=== PATIENT | male | born 1975 | race Hispanic/Latino ===

== ENCOUNTER 2016-11-25 09:55 | Emergency (ER) | payer SELFPAY ==
[2016-11-25 10:08] VITALS: BMI 30.2
[2016-11-25 10:14] VITALS: BP 124/78; TEMP 97.8; O2SAT 98
--- NOTE | 2016-11-25 10:38 | C.PDOC ---
History Of Present Illness 40 year old male presents to the ED with complaints of dental pain and swelling. Patient states he got [place] at a [place] in [place] in 2011 and fractured the teeth on the right side of his mouth. Patient went to a dentist for treatment but it did not help, returned to his dentist 3 weeks ago and was told to go to an oral surgeon. Patient states he has not been able to follow up with an oral surgeon because he does not have insurance coverage. This morning, patient took 200mg Ibuprofen without significant relief, and presents to the ED for further evaluation. Patient also complains of left elbow pain and swelling. He states that he has been leaning on the elbow more than usual. Patient also complains of lower back pain associated with numbness and a burning sensation that extends to his right foot and toes. Patient denies any other symptoms, recent travel, known sick contact, fever, chills, recent injuries/falls. Time Seen by Provider: 11/25/16 10:00 Chief Complaint (Nursing): Dental Pain History Per: Patient History/Exam Limitations: no limitations Onset/Duration Of Symptoms: Days Current Symptoms Are (Timing): Still Present Quality: Positive for: Burning, "Pain" Recent travel outside of the [place]: No Additional History Per: Patient Past Medical History Reviewed: Historical Data, Nursing Documentation, Vital Signs Vital Signs: Last Vital Signs Temp 97.8 F 11/25/16 10:08 Pulse 78 11/25/16 10:52 Resp 17 11/25/16 10:52 BP 124/78 11/25/16 10:08 Pulse Ox 98 11/25/16 11:07 - Medical History PMH: No Chronic Diseases Surgical History: Back Surgery (Laminectomy) Other Surgeries: TMJ surgery Family History: States: Unknown Family Hx - Social History Hx Alcohol Use: Yes Hx Substance Use: Yes - Immunization History Hx Tetanus Toxoid Vaccination: No Hx Influenza Vaccination: Yes Hx Pneumococcal Vaccination: No Review Of Systems Constitutional: Positive for: Chills. Negative for: Fever, Weakness ENT: Positive for: Mouth Pain. Negative for: Throat Pain, Throat Swelling Cardiovascular: Negative for: Chest Pain Respiratory: Negative for: Cough Gastrointestinal: Negative for: Nausea Musculoskeletal: Positive for: Arm Pain (left elbow), Back Pain Neurological: Positive for: Numbness. Negative for: Weakness Physical Exam - Physical Exam Appears: Non-toxic, No Acute Distress Skin: Normal Color, Warm, Dry Head: Atraumatic, Normacephalic Eye(s): bilateral: Normal Inspection Oral Mucosa: Moist Teeth: No Normal Dentition (Right lower molar), Tender To Palpation (right lower molar ) Gingiva: No Erythema, Swelling, No Abscess Throat: Normal, No Erythema, No Exudate Neck: Normal, Supple Chest: Symmetrical, No Deformity Cardiovascular: Rhythm Regular Respiratory: Normal Breath Sounds Back: Paraspinal Tenderness (Right lumbar), No Other (Midline tenderness) Extremity: Normal ROM, No Tenderness (left elbow ), No Calf Tenderness, Capillary Refill (less than 2 seconds ), No Deformity Neurological/Psych: Oriented x3, Normal Speech, Normal Cognition Gait: Steady ED Course And Treatment O2 Sat by Pulse Oximetry: 98 (Room air) Pulse Ox Interpretation: Normal Medical Decision Making Medical Decision Making: Bloodwork ordered. Patient's [facility] history reviewed. Patient has a prior narcotic prescription that he received 11 months ago. Patient was counseled about the use of narcotics. Patient was told to follow up with oral surgeon for his tooth pain,and take Motrin PO to help manage pain. Disposition - Disposition Referrals: Clinic,Med Surg [Primary Care Provider] - Disposition: HOME/ ROUTINE Disposition Time: 10:35 Condition: STABLE Prescriptions: Amoxicillin/Clavulanate [Augmentin 875 MG-125 MG] 1 tab PO BID #20 tab Ibuprofen [Motrin] 600 mg PO Q6 #25 tab oxyCODONE/Acetaminophen [Percocet 5/325 mg Tab] 1 tab PO Q6 #10 tab Instructions: Elbow Bursitis (ED), Lumbar Radiculopathy (ED), Toothache (ED) Forms: [facility] (Faroese), Work Excuse - Clinical Impression Clinical Impression: Pain, dental, Olecranon bursitis, Lumbar radiculopathy - Scribe Statement The provider has reviewed the documentation as recorded by the Scribrolando Mead All medical record entries made by the Scribe were at my direction and personally dictated by me. I have reviewed the chart and agree that the record accurately reflects my personal performance of the history, physical exam, medical decision making, and the department course for this patient. I have also personally directed, reviewed, and agree with the discharge instructions and disposition.
[2016-11-25 10:59] VITALS: PULSE 78; RESP 17
== END 2016-11-25 10:59 | disposition home or self-care (01) ==
LOC: SUPCPDRO 09:55 → C.ER 09:55
DX: K08.89 Other specified disorders of teeth and supporting structures (principal); M70.22 Olecranon bursitis, left elbow; M54.16 Radiculopathy, lumbar region

== ENCOUNTER 2017-03-02 00:20 | Emergency (ER) | payer SELFPAY ==
[2017-03-02 00:21] VITALS: BMI 30.2
--- NOTE | 2017-03-02 01:03 | C.PDOC ---
History Of Present Illness patient notices a red line from mid right forearm "moving " upwards toweard the antecubital fosa. No trauma. Some fever and chill., Denies ivda Time Seen by Provider: 03/02/17 01:02 Chief Complaint (Nursing): Abnormal Skin Integrity History Per: Patient History/Exam Limitations: no limitations Onset/Duration Of Symptoms: Days Current Symptoms Are (Timing): Still Present Location Of Injury: Right: Forearm (streak of redness) Quality Of Symptoms: Swollen Severity: Mild Pain Scale Rating Of: 3 Recent travel outside of the [place]: No Additional History Per: Patient Past Medical History Reviewed: Historical Data, Nursing Documentation, Vital Signs Vital Signs: Last Vital Signs Temp 98.3 F 03/02/17 00:39 Pulse 79 03/02/17 00:39 Resp 16 03/02/17 00:39 BP 117/79 03/02/17 00:39 Pulse Ox 98 03/02/17 01:14 Surgical History: Back Surgery (Laminectomy) Family History: States: No Known Family Hx - Social History Hx Alcohol Use: Yes Hx Substance Use: Yes - Immunization History Hx Tetanus Toxoid Vaccination: No Hx Influenza Vaccination: No Hx Pneumococcal Vaccination: No Physical Exam - Physical Exam Appears: Non-toxic, No Acute Distress Skin: Warm, Dry, Rash (right frearm redness, streaking towards antecubital fossa ) Oral Mucosa: Moist Extremity: No Tenderness, No Deformity, No Swelling Extremity: Bilateral: Atraumatic Pulses: Right Brachial: Normal, Right Radial: Normal Neurological/Psych: Oriented x3, Normal Speech, Normal Cognition Gait: Steady ED Course And Treatment - Laboratory Results Result Diagrams: 03/02/17 01:47 03/02/17 01:47 O2 Sat by Pulse Oximetry: 98 Pulse Ox Interpretation: Normal Reevaluation Time: 03:27 Reassessment Condition: Improved Disposition Counseled Patient/Family Regarding: Studies Performed, Diagnosis, Need For Followup - Disposition Referrals: [facility] [Outside] [facility] [Outside] Disposition: HOME/ ROUTINE Disposition Time: 01:02 Condition: FAIR Additional Instructions: Please return if symptoms recur Prescriptions: Cephalexin [Keflex] 500 mg PO QID #28 capsule Instructions: Cellulitis (DC) Forms: [employer] (Italian) - Clinical Impression Clinical Impression: Cellulitis, Phlebitis
[2017-03-02 01:50] LABS: BASO # 0.1 K/uL (0.0-0.2); BASO % 0.7 % (0.0-2.0); EOS # 0.3 K/uL (0.0-0.7); EOS % 3.8 % (0.0-4.0); HEMOGLOBIN 15.6 g/dL (12.0-18.0); LYMPH # 3.5 K/uL (1.0-4.3); LYMPH % 43.8 % (20.0-40.0); MEAN CELL VOLUME 93.2 fL (80.0-94.0); MEAN CORPUSCULAR HGB CONC 34.3 g/dL (33.0-37.0); MEAN PLATELET VOLUME 7.4 fL (7.2-11.7); MONO # 0.9 K/uL (0.0-0.8); MONO % 11.2 % (0.0-10.0); NEUT # 3.2 K/uL (1.8-7.0); NEUT % 40.5 % (50.0-75.0); NRBC % 0.1 % (0.0-2.0); RBC 4.88 Mil/uL (4.40-5.90); RED CELL DISTRIBUTION WIDTH 13.1 % (11.5-14.5); WHITE BLOOD COUNT 7.9 K/uL (4.8-10.8)
[2017-03-02 01:53] LABS: VENOUS BLOOD GAS BASE EXCESS 1.5 mmol/L (0.0-2.0); VENOUS BLOOD GAS PCO2 46 mmHg (40-60); VENOUS BLOOD GAS PO2 39 mm/Hg (30-55); VENOUS BLOOD PH 7.38 (7.32-7.43)
[2017-03-02 02:12] LABS: BLOOD UREA NITROGEN 16 mg/dL (9-20); CALCIUM 8.8 mg/dl (8.6-10.4); GFR AFRICAN-AMERICAN > 60; GFR NON-AFRICAN AMERICAN > 60
[2017-03-02] MEDS ORDERED: ceFAZolin 1 gm FROZEN Premix 2 GM/100 ML ML IVPB ONE (02:26)
[2017-03-02] MEDS ORDERED: ceFAZolin IV 2 gm in Dextrose 2 GM/50 ML BAG IVPB SCH (02:30)
[2017-03-02 03:42] VITALS: BP 110/72; PULSE 63; RESP 20; TEMP 97.8; O2SAT 96
== END 2017-03-02 03:42 | disposition home or self-care (01) ==
LOC: C.ER 00:20
DX: L03.113 Cellulitis of right upper limb (principal); I80.9 Phlebitis and thrombophlebitis of unspecified site
CPT/HCPCS: 80048; 82803; 85025; 85610; 85730; 87040; 96365; 99284; J0690

== ENCOUNTER 2017-04-17 17:30 | Emergency (ER) | payer MEDICAID ==
[2017-04-17 17:37] VITALS: BMI 29.6
--- NOTE | 2017-04-17 18:28 | C.PDOC ---
History Of Present Illness 41-year-old male, presents to the emergency department with complaints of injury to Left elbow and right hand sustained three weeks status post mechanical fall. Patient reports he is taking OTC medications and icing area with minimal relief. Over the past two days, patient reports a bump to the right hand with associated redness. He also complains of pain to right shoulder and arm, denies injury but admits to moving furniture at work. Denies any fevers , or new injuries. Time Seen by Provider: 04/17/17 18:06 Chief Complaint (Nursing): Upper Extremity Problem/Injury History Per: Patient History/Exam Limitations: no limitations Onset/Duration Of Symptoms: Days Current Symptoms Are (Timing): Still Present Past Medical History Reviewed: Historical Data, Nursing Documentation, Vital Signs Vital Signs: Last Vital Signs Temp 98.2 F 04/17/17 19:19 Pulse 74 04/17/17 19:19 Resp 20 04/17/17 19:19 BP 109/69 04/17/17 19:19 Pulse Ox 98 04/17/17 19:19 Surgical History: Back Surgery (Laminectomy) Family History: States: No Known Family Hx - Social History Hx Alcohol Use: Yes Hx Substance Use: Yes - Immunization History Hx Tetanus Toxoid Vaccination: No Hx Influenza Vaccination: No Hx Pneumococcal Vaccination: No Review Of Systems Constitutional: Negative for: Fever Gastrointestinal: Negative for: Vomiting Musculoskeletal: Positive for: Arm Pain (L), Hand Pain (R) Neurological: Negative for: Weakness, Numbness, Headache, Dizziness Physical Exam - Physical Exam Appears: Well, Non-toxic, No Acute Distress Skin: Normal Color, Warm, Dry, No Rash Extremity: Normal ROM, Tenderness, Capillary Refill (<2 seconds), No Deformity, No Swelling, Other (FROM L elbow. Mild tenderness laterally. R Hand: Tenderness , erythema and swelling to 5th metacarpal.) Pulses: Left Radial: Normal, Right Radial: Normal Neurological/Psych: Oriented x3, Normal Speech ED Course And Treatment O2 Sat by Pulse Oximetry: 100 (RA) Pulse Ox Interpretation: Normal Medical Decision Making Medical Decision Making: Plan: * XR L elbow * XR R Hand Xrays viewed by me showing no acute fractures. Right hand shows deformity to 5th metacarpal, appears to be old fx and healed. Patient made aware of xray results. Advise analgesics and can follow up with ortho Disposition Counseled Patient/Family Regarding: Diagnosis, Need For Followup, Rx Given - Disposition Referrals: Osmin Servin III, MD [Staff Provider] - Frank Deng MD [Staff Provider] - Disposition: HOME/ ROUTINE Disposition Time: 19:04 Condition: GOOD Additional Instructions: You have an old healed fracture to right hand Take analgesics as needed Follow up with orthopedic for further evaluation. Prescriptions: Ibuprofen [Motrin] 600 mg PO Q8 #30 tab Instructions: Fractures Forms: [employer] (North Korean) - POA Present On Arrival: None - Clinical Impression Clinical Impression: Closed fracture of hand with routine healing, Elbow contusion, Muscle strain - Scribe Statement The provider has reviewed the documentation as recorded by the Scribe (Asmita Heck) All medical record entries made by the Scribe were at my direction and personally dictated by me. I have reviewed the chart and agree that the record accurately reflects my personal performance of the history, physical exam, medical decision making, and the department course for this patient. I have also personally directed, reviewed, and agree with the discharge instructions and disposition.
[2017-04-17 19:20] VITALS: BP 109/69; PULSE 74; RESP 20; TEMP 98.2
[2017-04-17 20:21] VITALS: O2SAT 100
--- NOTE | 2017-04-18 08:23 | RAD ---
PROCEDURE: Radiographs of the left elbow. HISTORY: pain s.p injury COMPARISON: No prior. FINDINGS: BONES: No acute fracture. JOINTS: Unremarkable. SOFT TISSUES: Normal. JOINT EFFUSION: None. OTHER FINDINGS: None IMPRESSION: No demonstrated fracture or dislocation.
--- NOTE | 2017-04-18 08:24 | RAD ---
PROCEDURE: Right Hand Radiographs. HISTORY: pain s.p injury COMPARISON: None. FINDINGS: BONES: No acute fracture. Sequelae of prior trauma involving the 5th metacarpal. JOINTS: Unremarkable. SOFT TISSUES: Normal. OTHER FINDINGS: None. IMPRESSION: No demonstrated acute fracture or dislocation.
== END 2017-04-17 19:21 | disposition home or self-care (01) ==
LOC: C.ER 17:30
DX: S62.91XD Unspecified fracture of right hand, subsequent encounter for fracture with routine healing (principal); S50.02XD Contusion of left elbow, subsequent encounter; W18.30XD Fall on same level, unspecified, subsequent encounter

== ENCOUNTER 2017-09-06 17:49 | Emergency (ER) | payer MEDICAID ==
[2017-09-06 17:49] VITALS: BMI 29.6
--- NOTE | 2017-09-06 19:45 | C.PDOC ---
History Of Present Illness 41-year-old male presents to the ED for evaluation of head injury sustained tonight. States that an elevator ceiling grate fell on left side of his head. Patient is now complaining of pain to the area. Denies any LOC. Patient remembers all details of the event. He also sustained a small abrasion to his left arm. Otherwise patient denies any visual changes, numbness, weakness, changes in speech, SOB, chest pain, or other injuries. Time Seen by Provider: 09/06/17 19:44 Chief Complaint (Nursing): Trauma History Per: Patient History/Exam Limitations: no limitations Injury Occurred (Timing): Just Before Arrival Onset/Duration Of Symptoms: Mins Patient States: Struck With Object Severity: Mild Pain Scale Rating Of: 2 Loss Of Consciousness: No Recent travel outside of the [place]: No Additional History Per: Patient Past Medical History Reviewed: Historical Data, Nursing Documentation, Vital Signs - Medical History PMH: Back Problems Surgical History: Back Surgery (Laminectomy) Family History: States: No Known Family Hx - Social History Hx Alcohol Use: Yes Hx Substance Use: Yes - Immunization History Hx Tetanus Toxoid Vaccination: No Hx Influenza Vaccination: No Hx Pneumococcal Vaccination: No Review Of Systems Eyes: Negative for: Vision Change Cardiovascular: Negative for: Chest Pain Respiratory: Negative for: Shortness of Breath Musculoskeletal: Negative for: Neck Pain, Arm Pain, Back Pain Skin: Positive for: Lesions (abrasion to left arm) Neurological: Positive for: Other (Head injury without LOC). Negative for: Weakness, Numbness, Incoordination, Change in Speech, Confusion Psych: Positive for: Anxiety Physical Exam - Physical Exam Appears: Non-toxic, No Acute Distress Skin: Warm, Dry Head: Normacephalic, Tenderness (Mild tenderness over the frontal temporal area) , Other (No obvious signs of trauma, ecchymosis, or hematoma) Eye(s): bilateral: Normal Inspection, PERRL, EOMI Ear(s): Bilateral: Normal (with no hemotympanum) Oral Mucosa: Moist Neck: Trachea Midline, No Midline Cervical Tenderness, No Paracervical Tenderness, Supple Chest: Symmetrical Cardiovascular: Rhythm Regular Respiratory: No Rales, No Rhonchi, No Wheezing Gastrointestinal/Abdominal: Soft, No Tenderness, No Distention Extremity: Normal ROM, No Tenderness, No Swelling, Other (Small abrasion to left elbow) Pulses: Left Dorsalis Pedis: Normal, Right Dorsalis Pedis: Normal Neurological/Psych: Oriented x3 Gait: Steady ED Course And Treatment O2 Sat by Pulse Oximetry: 99 Pulse Ox Interpretation: Normal - CT Scan/US Head CT Other Rad Studies (CT/US): Read By Radiologist, Radiology Report Reviewed CT/US Interpretation: Name: DEBRA QUIÑONES Age: 41Years M Date: 09/06/2017. Requesting Physician: ARNOLD LAMBERT : 1975. [employer] Procedure Ordered As Accession Number of Images. CT HEAD WO CT HEAD W O CONTRAST [id number]. Provided Clinical History: left forehead trauma( grate fell on his head). EXAM: CT Head Without Intravenous Contrast. CLINICAL HISTORY: 41 years old, male; Injury or trauma; Fall; Initial encounter ; Concussion / head injury; Additional info: Left forehead trauma( grate fell on his head). TECHNIQUE: Axial computed tomography images of the head/brain without intravenous contrast. All CT scans at. this facility use at least one of these dose optimization techniques: automated exposure control; mA. and/or kV adjustment per patient size (includes targeted exams where dose is matched to clinical. indication); or iterative reconstruction. Coronal and sagittal reformatted images were created and reviewed. COMPARISON: No relevant prior studies available. FINDINGS: Brain: The brain with normal barnes-white matter differentiation, without acute intracranial hemorrhage,. edema or mass effect. Midline shift: No midline shift is present. Ventricles: Unremarkable. No ventriculomegaly. Bones/joints: No calvarial fractures are visualized. Soft tissues: Unremarkable. Sinuses: Unremarkable as visualized. No acute sinusitis. Mastoid air cells: Unremarkable as visualized. No mastoid effusion. Orbits: The orbits are normal. There is no evidence of retrobulbar hemorrhage. IMPRESSION: No significant injury noted to the patient's head. No acute intracranial findings are seen. Thank you for allowing us to participate in the care of your patient. Dictated and Authenticated by: Santhosh Helton MD. 09/06/2017 8:21 PM Eastern Time ([place] & [place]) Progress Note: Head CT ordered and reviewed. PO Motrin given. Counseled patient regarding findings, copy of report provided. Reevaluation Time: 21:16 Reassessment Condition: Improved Disposition Counseled Patient/Family Regarding: Studies Performed, Diagnosis, Need For Followup - Disposition Referrals: [facility] [Outside] [facility] [Outside] Disposition: HOME/ ROUTINE Disposition Time: 19:44 Condition: FAIR Instructions: Contusion (DC), Minor Head Injury (DC) Forms: [employer] (Guinean) - Clinical Impression Clinical Impression: Contusion, Elbow contusion, Minor head injury without loss of consciousness - Scribe Statement The provider has reviewed the documentation as recorded by the Scribe (Mishel Zimmerman) Provider Attestation: All medical record entries made by the Scribe were at my direction and personally dictated by me. I have reviewed the chart and agree that the record accurately reflects my personal performance of the history, physical exam, medical decision making, and the department course for this patient. I have also personally directed, reviewed, and agree with the discharge instructions and disposition.
[2017-09-06 21:21] VITALS: BP 101/63; PULSE 51; RESP 18; TEMP 98.1; O2SAT 98
--- NOTE | 2017-09-07 09:45 | CT ---
Date of service: 09/06/2017 PROCEDURE: CT HEAD WITHOUT CONTRAST. HISTORY: left forehead trauma( grate fell on his head) COMPARISON: None available. TECHNIQUE: Axial computed tomography images were obtained through the head/brain without intravenous contrast. Radiation dose: Total exam DLP = 984.34 mGy-cm. This CT exam was performed using one or more of the following dose reduction techniques: Automated exposure control, adjustment of the mA and/or kV according to patient size, and/or use of iterative reconstruction technique. FINDINGS: HEMORRHAGE: No intracranial hemorrhage. BRAIN: Russo-white matter differentiation is preserved. There is no mass, mass effect or abnormal extra-axial fluid collection. There is no territorial infarction. The midline sagittal structures are normal. VENTRICLES: The ventricles are normal in size, shape and configuration. CALVARIUM: There is no calvarial fracture or extracranial soft tissue swelling. PARANASAL SINUSES: There is mild mucosal thickening in the right maxillary sinus. The remaining included paranasal sinuses are predominantly clear. MASTOID AIR CELLS: Bilateral mastoid air cells are underdeveloped. OTHER FINDINGS: None. IMPRESSION: No acute intracranial abnormality. A preliminary report was provided by [employer] [facility].
== END 2017-09-06 21:21 | disposition home or self-care (01) ==
LOC: C.ER 17:49
DX: S09.90XA Unspecified injury of head, initial encounter (principal); S50.02XA Contusion of left elbow, initial encounter; W20.8XXA Other cause of strike by thrown, projected or falling object, initial encounter; Y92.89 Other specified places as the place of occurrence of the external cause